=== PATIENT | female | born 1955 | race Caucasian/White ===

== ENCOUNTER 2016-05-10 13:14 | Emergency (ER) | payer OTHER ==
[~2016-05-10] VITALS: Ht 170.2 cm; Wt 95.3 kg
[~2016-05-10 13:14] MED LIST: AMBIEN 10MG10 MG PO; AMOXICILLIN500 MG PO; ANAPROX DS1 TAB PO; ARIMIDEX PO; AUGMENTIN 500-1 EACH PO; AVONEX 3030 MCG/0.5; BACTRIM DS 8001 TAB PO; BENZTROPINE1 MG PO; CELEBREX200 MG PO; COZAAR 50MG TAB50 MG PO; D3 VITAMIN400 IU/ML; FULL CIRCLE BIOT5 MG; GLUCOSAMINE500 MG; INDOMETHACIN25 MG PO; KEFLEX500 M1 PO; LEVOTHYROXINE88 MCG PO; LIPITOR10 MG PO; LITHIUM CARBON150 MG PO; LOSARTAN POTASS50 MG PO; LOVAZA1 GM PO; LUTEIN1 BEA; MAGNESIUM ELEME30 MG; MIRALAX17 GM PO; MYRBETRIQ25 MG PO; NASONEX0.05 MG/Ac; NATURE'S BLEND50 MCG; PREDNISONE20 M1 PO; PROTONIX 40MG T40 MG PO; RISPERIDONE1 MG PO; ROBAXIN 500MG500 MG PO; SEROQUEL400 MG PO; SEROQUEL50 MG PO; TENORMIN25 MG PO; TIZANIDINE2 MG PO; TRAMADOL HCL50 M1 PO; TRAMADOL50 MG PO; TRAZODONE50 MG PO; VITAMIN A NA10000 IU; VITAMIN C500 M1; VITAMIN D50000 I1 PO; VITAMIN E100 IU; [UNRECOGNIZED DRUG - OTHER] PO
[2016-05-10 13:28] VITALS: BP 146/89
[2016-05-10] MEDS ORDERED: MOBIC15 M1 PO (14:17)
--- NOTE | 2016-05-10 14:17 | ED UPPER/LOWER EXTREMITY COMPL ---
History of Present Illness General Chief Complaint: Upper Extremity Problem Stated Complaint: R ELBOW PAIN X 1 WEEK Source: patient Exam Limitations: no limitations Vital Signs & Intake/Output Vital Signs & Intake/Output Vital Signs Date Time Temp Pulse Resp B/P Pulse O2 O2 Flow FiO2 Ox Delivery Rate 05/10 1328 98.0 72 20 146/89 94 Room Air Allergies Coded Allergies: NO KNOWN ALLERGIES (05/10/16) Reconcile Medications Anastrozole (Arimidex 1MG) 1 MG TABLET 1 TAB PO DAILY UNKNOWN (Reported) Ascorbic Acid (Vitamin C) (Unknown Strength) CTB (Unknown Dose) SUPPLEMENT ( Reported) Atenolol (Tenormin) 25 MG TABLET 1 TAB PO DAILY BP (Reported) Atorvastatin Calcium (Lipitor) 10 MG TAB 1 TAB PO QPM CHOLOSTEROL (Reported) Benztropine Mesylate (Benztropine) 1 MG TAB 1 TAB PO UNKNOWN (Reported) Biotin (Unknown Strength) CAPSULE (Unknown Dose) SUPPLEMENT (Reported) Cephalexin (Keflex) 500 MG CAPSULE 1 CAP PO TID PARONYCHIA CHOLECALCIFEROL (VITAMIN D3) (Vitamin D) (Unknown Strength) DROPS (Unknown Dose) SUPPLEMENT (Reported) ERGOCALCIFEROL (VITAMIN D2) (Vitamin D2) 50,000 UNIT CAPSULE 1 CAP PO Q30D UNKNOWN (Reported) Glucosamine Sulfate (Glucosamine) (Unknown Strength) CAP (Unknown Dose) SUPPLEMENT (Reported) Interferon Beta-1a (Avonex) 30 MCG/0.5 ML SYRINGEKIT 30 MG QW UNKNOWN ( Reported) Levothyroxine Sodium 88 MCG TABLET 1 TAB PO DAILY AC THYROID (Reported) Losartan Potassium 50 MG TAB 1 TAB PO DAILY HEART (Reported) Lutein (Unknown Strength) BEADS (Unknown Dose) SUPPLEMENT (Reported) Meloxicam (Mobic) 15 MG TABLET 1 TAB PO DAILY INFLAMMATION Mirabegron (Myrbetriq) 25 MG TAB.ER.24H 1 TAB PO DAILY UNKNOWN (Reported) Mometasone Furoate (Nasonex) 0.05 MG/Actuation SPR UNKNOWN (Reported) Zdbxb-1-Ousu Ethyl Esters (Lovaza) 1 GRAM CAPSULE 2 CAP PO BID UNKNOWN ( Reported) Polyethylene Glycol 3350 (Miralax) 17 GRAM/DOSE POWDER 17 GM PO DAILY UNKNOWN (Reported) mix with water, juice, soda, coffee or tea Prednisone 20 MG TABLET 1 TAB PO BID DYSPNEA Quetiapine Fumarate (Seroquel) 400 MG TAB 1 TAB PO QPM MENTAL HEALTH ( Reported) Risperidone 1 MG TABLET 1 MG PO BID BIPOLAR (Reported) Selenium (Unknown Strength) TABLET (Unknown Dose) SUPPLEMENT (Reported) TIZANIDINE HCL (Tizanidine) 2 MG TABLET 2 MG PO TID LEG CRAMPS (Reported) Tramadol HCl 50 MG TABLET 1 TAB PO TID PRN PAIN Vitamin A (Vitamin A Natural) (Unknown Strength) SGL (Unknown Dose) DAILY SUPPLEMENT (Reported) Triage Note: TRIAGE: PT TO ER C/C R ELBOW AREA PAIN X 1 WK 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 HAS NOT TRIED ANY OTC PAIN MEDICATIONS. PREFERS TO WAIT FOR EVAL. Triage Nurses Notes Reviewed? yes HPI: 60-year-old female who was lifting a box approximately one week ago, it was a heavy box, she felt a sudden onset of severe pain to the right radial forearm region. She has had pain in this area since. It is slowly getting better. She is not taking any medication or having any treatment for this. She is right- hand dominant. There is no swelling. She has no limited range of motion. She denies any elbow pain. (VAUGHN VALLES) Past History Travel History Traveled to [place] past 21 day No Medical History Any Pertinent Medical History? 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 No (VAUGHN VALLES) Review of Systems Review of Systems Constitutional: Reports: see HPI. EENTM: Reports: no symptoms. Respiratory: Reports: no symptoms. Cardiovascular: Reports: no symptoms. Gastrointestinal/Abdominal: Reports: no symptoms. Genitourinary: Reports: no symptoms. Musculoskeletal: Reports: see HPI. Skin: Reports: no symptoms. Neurological/Psychological: Reports: no symptoms. Hematologic/Endocrine: Reports: no symptoms. Immunological: Reports: no symptoms. All Other Systems: Reviewed and Negative (VAUGHN VALLES) Physical Exam Physical Exam General Appearance: well developed/nourished Comments: Well-developed well-nourished no apparent distress. HEENT: Atraumatic, extraocular motion intact Neck: Supple, no lymphadenopathy Back: Nontender Respiratory: No respiratory distress Extremities: No edema, full range of motion Neuro: Alert and oriented x3 Psych: Mood affect normal, normal memory normal judgment. Skin: Warm and dry, no rash on exposed skin Right upper extremity, tenderness to the brachioradialis region proximally. There is increased pain with resisted flexion of the brachioradialis muscle. There is no tenderness of the elbow, elbow has full range of motion, wrist without tenderness, full range of motion. There is no bony tenderness. Neurovascular intact right upper extremity (VAUGHN VALLES) Progress Differential Diagnosis: arterial insufficiency, cellulitis, CHF, compartment syndrome, contusion, dislocation, DVT, fracture, gout, septic arthritis, sprain, tendon injury Plan of Care: Patient has a brachioradialis muscle strain, she has no bony tenderness, there is no swelling or is no sign of tendon rupture or muscle tear. She has no functional deficit. This is self-limiting and she requires NSAIDs rest ice, Mathtew wrap was applied to the right upper extremity by myself. She understands and agrees with plan to follow up with her primary care doctor if no better in 1-2 weeks. (VAUGHN VALLES) Departure Departure Disposition: HOME OR SELF CARE Condition: Stable Clinical Impression Primary Impression: Brachioradialis muscle tenderness Referrals: JANY MARTINEZ (PCP/Family) Additional Instructions: Rest, ice, compression (matthew wrap), elevation. Motrin and Tylenol as needed for pain. Gradual return to activity as tolerated. Follow-up with your doctor in one to 2 weeks if no better. Departure Forms: Customer Survey General Discharge Information Prescriptions: Current Visit Scripts Meloxicam (Mobic) 1 TAB PO DAILY #15 TAB (VAUGHN VALLES) PA/WORKPLACE RELATIONS ADVISER Co-Sign Statement Statement: ED Attending supervision documentation- [X] I saw and evaluated the patient. I have also reviewed all the pertinent lab results and diagnostic results. I agree with the findings and the plan of care as documented in the PA's/WORKPLACE RELATIONS ADVISER's documentation. [X]X I have reviewed the ED Record and agree with the PA's/WORKPLACE RELATIONS ADVISER's documentation. [] Additions or exceptions (if any) to the PAs/WORKPLACE RELATIONS ADVISER's note and plan are summarized below: [] (BELEN GOLDSMITH,DON Hyde)
== END 2016-05-10 14:17 ==
LOC: ERH 13:14
DX: M79.631 Pain in right forearm (principal)

== ENCOUNTER 2017-10-24 08:33 | Emergency (ER) | payer OTHER ==
[~2017-10-24] VITALS: Ht 170.2 cm; Wt 95.3 kg
[~2017-10-24 08:33] MED LIST changes: +AZITHROMYCIN250 M1 PO; +IBUPROFEN800 M1 PO; +LASIX20 M1 PO; +MOBIC15 M1 PO; +ROBAXIN-750750 M1 PO; +VENTOLIN HFA18 GM INH
[2017-10-24 08:38] VITALS: BP 144/83
[2017-10-24] MEDS ORDERED: CIPRODEX OTIC7.5 ML OT (09:06)
--- NOTE | 2017-10-24 09:06 | ED EAR COMPLAINT ---
History of Present Illness General Chief Complaint: Ear Complaints Stated Complaint: LEFT EAR PAIN X3DAYS Source: patient Exam Limitations: no limitations Vital Signs & Intake/Output Vital Signs & Intake/Output Vital Signs Date Time Temp Pulse Resp B/P B/P Pulse O2 O2 Flow FiO2 Mean Ox Delivery Rate 10/24 0852 Room Air 10/24 0838 96.2 76 20 144/83 96 Room Air Allergies Coded Allergies: NO KNOWN ALLERGIES (05/10/16) Reconcile Medications Albuterol Sulfate (Ventolin Hfa) 90 MCG HFA.AER.AD 2 PUF INH Q4-6 PRN PRN BRONCHITIS Anastrozole (Arimidex 1MG) 1 MG TABLET 1 TAB PO DAILY UNKNOWN (Reported) Ascorbic Acid (Vitamin C) (Unknown Strength) CTB (Unknown Dose) SUPPLEMENT ( Reported) Atenolol (Tenormin) 25 MG TABLET 1 TAB PO DAILY BP (Reported) Atorvastatin Calcium (Lipitor) 10 MG TAB 1 TAB PO QPM CHOLOSTEROL (Reported) Azithromycin 250 MG TABLET 1 DP PO AD BRONCHITIS 2 the first day followed by 1 for days 2-5 Benztropine Mesylate (Benztropine) 1 MG TAB 1 TAB PO UNKNOWN (Reported) Biotin (Unknown Strength) CAPSULE (Unknown Dose) SUPPLEMENT (Reported) Cephalexin (Keflex) 500 MG CAPSULE 1 CAP PO TID PARONYCHIA CHOLECALCIFEROL (VITAMIN D3) (Vitamin D) (Unknown Strength) DROPS (Unknown Dose) SUPPLEMENT (Reported) Ciprofloxacin HCl/Dexameth (Ciprodex Otic Suspension) 0.3 %-0.1 % DROPS.SUSP 4 GTT OT BID ear infection ERGOCALCIFEROL (VITAMIN D2) (Vitamin D2) 50,000 UNIT CAPSULE 1 CAP PO Q30D UNKNOWN (Reported) Furosemide (Lasix) 20 MG TABLET 1 TAB PO DAILY EDEMA Glucosamine Sulfate (Glucosamine) (Unknown Strength) CAP (Unknown Dose) SUPPLEMENT (Reported) Ibuprofen 800 MG TABLET 1 TAB PO TID PRN PAIN Interferon Beta-1a (Avonex) 30 MCG/0.5 ML SYRINGEKIT 30 MG QW UNKNOWN ( Reported) Levothyroxine Sodium 88 MCG TABLET 1 TAB PO DAILY AC THYROID (Reported) Losartan Potassium 50 MG TAB 1 TAB PO DAILY HEART (Reported) Lutein (Unknown Strength) BEADS (Unknown Dose) SUPPLEMENT (Reported) Meloxicam (Mobic) 15 MG TABLET 1 TAB PO DAILY INFLAMMATION Methocarbamol (Robaxin-750) 750 MG TABLET 1 TAB PO TID PRN PAIN Mirabegron (Myrbetriq) 25 MG TAB.ER.24H 1 TAB PO DAILY UNKNOWN (Reported) Mometasone Furoate (Nasonex) 0.05 MG/Actuation SPR UNKNOWN (Reported) Gdmtc-2-Eelo Ethyl Esters (Lovaza) 1 GRAM CAPSULE 2 CAP PO BID UNKNOWN ( Reported) Polyethylene Glycol 3350 (Miralax) 17 GRAM/DOSE POWDER 17 GM PO DAILY UNKNOWN (Reported) mix with water, juice, soda, coffee or tea Prednisone 20 MG TABLET 1 TAB PO BID BRONCHITIS Prednisone 20 MG TABLET 1 TAB PO BID DYSPNEA Quetiapine Fumarate (Seroquel) 400 MG TAB 1 TAB PO QPM MENTAL HEALTH ( Reported) Risperidone 1 MG TABLET 1 MG PO BID BIPOLAR (Reported) Selenium (Unknown Strength) TABLET (Unknown Dose) SUPPLEMENT (Reported) TIZANIDINE HCL (Tizanidine) 2 MG TABLET 2 MG PO TID LEG CRAMPS (Reported) Tramadol HCl 50 MG TABLET 1 TAB PO TID PRN PAIN Vitamin A (Vitamin A Natural) (Unknown Strength) SGL (Unknown Dose) DAILY SUPPLEMENT (Reported) Triage Note: PT TO ED C/O LEFT EAR PAIN X 3 DAYS. HPI: She has no significant past med hx. (Robinson GOLDSMITH,[facility]) General Source: patient, family, old records Exam Limitations: no limitations Triage Nurses Notes Reviewed? yes HPI: Patient presents complaining of pain to her left ear for the past 3 days. The pain increases when she pulls on her ear. There is no hearing change. Patient states that she's had similar symptoms in the past when she's had ear infections. The pain is aching in nature. She rates the pain a 4-10. Patient denies any dizziness. There are no fevers or chills. (Sammie GOLDSMITH,Santy Hyde) Past History Travel History Traveled to [place] past 21 day No Medical History Any Pertinent Medical History? 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 see below for history Family History Hx Contributory? No (Santy Cochran MD) Review of Systems Review of Systems Constitutional: Reports: no symptoms. EENTM: Reports: see HPI, ear pain. Respiratory: Reports: no symptoms. Cardiovascular: Reports: no symptoms. GI: Reports: no symptoms. Genitourinary: Reports: no symptoms. Musculoskeletal: Reports: no symptoms. Skin: Reports: no symptoms. Neurological/Psychological: Reports: no symptoms. Hematologic/Endocrine: Reports: no symptoms. Immunologic/Allergic: Reports: no symptoms. All Other Systems: Reviewed and Negative (Yasmeen Bowers MD) Review of Systems Constitutional: Reports: no symptoms. EENTM: Reports: see HPI, ear pain. Respiratory: Reports: no symptoms. Cardiovascular: Reports: no symptoms. Neurological/Psychological: Reports: no symptoms. Immunologic/Allergic: Reports: no symptoms. (Santy Cochran MD) Physical Exam Physical Exam General Appearance: well developed/nourished, alert, awake, anxious Head: atraumatic, normal appearance Eyes: Bilateral: normal appearance, PERRL, EOMI. Ears: Left: erythema. Bilateral: canal normal, Tympanic normal. Nose: normal inspection Mouth/Throat: normal mouth inspection, pharynx normal Neck: normal inspection, supple Cardiovascular/Respiratory: normal breath sounds, normal peripheral pulses, regular rate/rhythm Gastrointestinal: non tender, non distended Neurologic/Psych: no motor/sensory deficits, awake, alert, oriented x 3, normal gait, normal mood/affect (Yasmeen Bowers MD) Physical Exam General Appearance: well developed/nourished, alert, awake, anxious, mild distress Head: atraumatic Ears: Left: erythema. Right: canal normal. Bilateral: Tympanic normal. Mouth/Throat: normal mouth inspection, pharynx normal Cardiovascular/Respiratory: normal breath sounds, normal peripheral pulses, regular rate/rhythm Neurologic/Psych: no motor/sensory deficits, awake, alert, oriented x 3, normal gait, normal mood/affect (Santy Cochran MD) Progress Differential Diagnoses I considered the following diagnoses in my evaluation of the patient: (Yasmeen Bowers MD) Differential Diagnoses I considered the following diagnoses in my evaluation of the patient: [Otitis media, otitis externa] Plan of Care: Antibiotic eardrops Initial ED EKG: none (Sammie GOLDSMITH,Santy Hyde) Departure Departure Disposition: HOME OR SELF CARE Condition: Stable Referrals: Shari Oconnor APRN (PCP/Family) Additional Instructions: -Please visit your nearest emergency department if you have worsening ear pain, ear discharge, fever, chills -Please visit your primary care physician and let them know about your recent emergency department visit Departure Forms: Customer Survey General Discharge Information Prescriptions: Current Visit Scripts Ciprofloxacin HCl/Dexameth (Ciprodex Otic Suspension) 4 GTT OT BID #7.5 ML (Yasmeen Bowers MD) Departure Clinical Impression Primary Impression: Otitis externa Resident Co-Sign Statement Statement: ED Attending supervision documentation- [X] I saw and evaluated the patient. I have also reviewed all the pertinent lab results and diagnostic results. I agree with the findings and the plan of care as documented in the Resident's documentation. [X] I have reviewed the ED Record and agree with the Resident's documentation. [] Additions or exceptions (if any) to the Resident's note and plan are summarized below: [] (Sammie GOLDSMITH,Santy Hyde) ED Attending Observation Initial Observation Note: I have seen and personally examined JALEN DAS on 10/24/17 at 1601. I agree with the current emergency department documentation. The disposition (admission or discharge) is uncertain at this time, she needs a period of observation for the following reason(s): [no obs needed] The ED Nurse caring for this patient has been personally informed as to what the patient is being observed for. (Yasmeen Bowers MD)
== END 2017-10-24 09:11 ==
LOC: ERH 08:33
DX: H60.92 Unspecified otitis externa, left ear (principal)

== ENCOUNTER 2017-10-27 14:48 | Emergency (ER) | payer OTHER ==
[~2017-10-27] VITALS: Ht 170.2 cm; Wt 95.3 kg
[~2017-10-27 14:48] MED LIST changes: +CIPRODEX OTIC7.5 ML OT
[2017-10-27 15:12] LABS: ABSOLUTE BASOPHIL COUNT 0 /CUMM (0.0-0.2); ABSOLUTE EOSINOPHIL COUNT 0.1 /CUMM (0.0-0.7); ABSOLUTE GRANULOCYTE CT 1.8 /CUMM (1.4-6.5); ABSOLUTE LYMPH COUNT 1.2 /CUMM (1.2-3.4); ABSOLUTE MONOCYTE COUNT 0.3 /CUMM (0.10-0.60); BASOPHIL % 0.9 % (0.0-2.0); EOSINOPHIL % 2.2 % (0-5); GRANULOCYTE % 53.2 % (42.2-75.2); HEMATOCRIT 33.2 % (37-47); MEAN CORPUSCULAR HGB 28.8 PG (27.0-31.0); MEAN CORPUSCULAR HGB CONC 33.3 G/DL (33.0-37.0); MEAN CORPUSCULAR VOLUME 86.5 FL (81.0-99.0); MEAN PLATELET VOLUME 9.2 FL (7.4-10.4); PLATELET COUNT 122 /CUMM (130-400); RBC DISTRIBUTION WIDTH 15.1 % (11.5-14.5); RED BLOOD CELL CT 3.84 /CUMM (4.20-5.40); WHITE BLOOD CELL COUNT 3.3 /CUMM (4.8-10.8)
--- NOTE | 2017-10-27 15:48 | RADIOLOGY REPORT ---
EXAMINATION: CHEST 2 VIEWS CLINICAL INFORMATION: Chest pain. COMPARISON: 01/03/2017. TECHNIQUE: PA and lateral views of the chest were obtained. FINDINGS: The cardiac silhouette is not enlarged. The mediastinal and hilar contours are unremarkable. There are neither pleural effusions nor pneumothoraces. There are no consolidations. The osseous structures are stable. IMPRESSION: No evidence for acute disease.
--- NOTE | 2017-10-27 16:08 | ED GENERAL ADULT ---
History of Present Illness General Chief Complaint: Chest Pain Stated Complaint: CP Source: patient Exam Limitations: no limitations Vital Signs & Intake/Output Vital Signs & Intake/Output Vital Signs Date Time Temp Pulse Resp B/P B/P Pulse O2 O2 Flow FiO2 Mean Ox Delivery Rate 10/27 1847 65 17 175/95 98 Room Air 10/27 1637 95 Room Air 10/27 1502 97.8 74 20 122/80 96 Room Air Allergies Coded Allergies: NO KNOWN ALLERGIES (05/10/16) Reconcile Medications Albuterol Sulfate (Ventolin Hfa) 90 MCG HFA.AER.AD 2 PUF INH Q4-6 PRN PRN BRONCHITIS Anastrozole (Arimidex 1MG) 1 MG TABLET 1 TAB PO DAILY UNKNOWN (Reported) Ascorbic Acid (Vitamin C) (Unknown Strength) CTB (Unknown Dose) SUPPLEMENT ( Reported) Atenolol (Tenormin) 25 MG TABLET 1 TAB PO DAILY BP (Reported) Atorvastatin Calcium (Lipitor) 10 MG TAB 1 TAB PO QPM CHOLOSTEROL (Reported) Azithromycin 250 MG TABLET 1 DP PO AD BRONCHITIS 2 the first day followed by 1 for days 2-5 Benztropine Mesylate (Benztropine) 1 MG TAB 1 TAB PO UNKNOWN (Reported) Biotin (Unknown Strength) CAPSULE (Unknown Dose) SUPPLEMENT (Reported) Cephalexin (Keflex) 500 MG CAPSULE 1 CAP PO TID PARONYCHIA CHOLECALCIFEROL (VITAMIN D3) (Vitamin D) (Unknown Strength) DROPS (Unknown Dose) SUPPLEMENT (Reported) Ciprofloxacin HCl/Dexameth (Ciprodex Otic Suspension) 0.3 %-0.1 % DROPS.SUSP 4 GTT OT BID ear infection ERGOCALCIFEROL (VITAMIN D2) (Vitamin D2) 50,000 UNIT CAPSULE 1 CAP PO Q30D UNKNOWN (Reported) Furosemide (Lasix) 20 MG TABLET 1 TAB PO DAILY EDEMA Glucosamine Sulfate (Glucosamine) (Unknown Strength) CAP (Unknown Dose) SUPPLEMENT (Reported) Ibuprofen 800 MG TABLET 1 TAB PO TID PRN PAIN Interferon Beta-1a (Avonex) 30 MCG/0.5 ML SYRINGEKIT 30 MG QW UNKNOWN ( Reported) Levothyroxine Sodium 88 MCG TABLET 1 TAB PO DAILY AC THYROID (Reported) Losartan Potassium 50 MG TAB 1 TAB PO DAILY HEART (Reported) Lutein (Unknown Strength) BEADS (Unknown Dose) SUPPLEMENT (Reported) Meloxicam (Mobic) 15 MG TABLET 1 TAB PO DAILY INFLAMMATION Methocarbamol (Robaxin-750) 750 MG TABLET 1 TAB PO TID PRN PAIN Mirabegron (Myrbetriq) 25 MG TAB.ER.24H 1 TAB PO DAILY UNKNOWN (Reported) Mometasone Furoate (Nasonex) 0.05 MG/Actuation SPR UNKNOWN (Reported) [id number] Ethyl Esters (Lovaza) 1 GRAM CAPSULE 2 CAP PO BID UNKNOWN ( Reported) Polyethylene Glycol 3350 (Miralax) 17 GRAM/DOSE POWDER 17 GM PO DAILY UNKNOWN (Reported) mix with water, juice, soda, coffee or tea Prednisone 20 MG TABLET 1 TAB PO BID BRONCHITIS Prednisone 20 MG TABLET 1 TAB PO BID DYSPNEA Quetiapine Fumarate (Seroquel) 400 MG TAB 1 TAB PO QPM MENTAL HEALTH ( Reported) Risperidone 1 MG TABLET 1 MG PO BID BIPOLAR (Reported) Selenium (Unknown Strength) TABLET (Unknown Dose) SUPPLEMENT (Reported) TIZANIDINE HCL (Tizanidine) 2 MG TABLET 2 MG PO TID LEG CRAMPS (Reported) Tramadol HCl 50 MG TABLET 1 TAB PO TID PRN PAIN Vitamin A (Vitamin A Natural) (Unknown Strength) SGL (Unknown Dose) DAILY SUPPLEMENT (Reported) Triage Note: PT TO ED C/O CHEST PAIN SINCE THIS AM. STATES CONSTANT SHARP 6/10 PAIN. PAIN IS NON RADIATING. EKG DONE, VSS. Triage Nurses Notes Reviewed? yes HPI: Pt is a 62 y/o F PMHx breast CA s/p lumpectomy 2012, MS, bipolar d/o, chronic back pain complaining of chest pain x several days. Pt describes a constant, sharp pain located at the left breast and shoulder region. Pain is exacerbated after lying down while supporting herself with her left shoulder while reading magazines. Pt has not attempted any alleviating measures. Pt denies any SOB, N/V /D, abdominal pain, recent travel, smoking, estrogen use. (Doyle GOLDSMITH,Isauro) Past History Travel History Traveled to [place] past 21 day No Medical History Any Pertinent Medical History? 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 Yes (Isauro Kwon MD) Review of Systems Review of Systems Constitutional: Denies: see HPI. Respiratory: Denies: see HPI. Cardiovascular: Reports: see HPI. GI: Denies: see HPI. Genitourinary: Denies: see HPI. Musculoskeletal: Reports: see HPI. (Isauro Kwon MD) Physical Exam Physical Exam General Appearance: well developed/nourished, no apparent distress, alert Head: atraumatic, normal appearance Eyes: Bilateral: normal appearance. Neck: normal inspection, supple, full range of motion Respiratory: normal breath sounds, lungs clear, Pain is reproducible with palpation. Cardiovascular: regular rate/rhythm, normal peripheral pulses, NMRG Gastrointestinal: normal bowel sounds, soft, non-tender Core Measures ACS in differential dx? Yes CVA/TIA Diagnosis: No Sepsis Present: No Sepsis Focused Exam Completed? No (Isauro Kwon MD) Progress Differential Diagnoses I considered the following diagnoses in my evaluation of the patient: Clinically suspect musculoskeletal pain in this patient based on exam, history, and presentation. Mild concern also for atypical ACS in this 62-year-old female with some risk factors. Pulmonary embolism seems extremely unlikely and patient without tachycardia, shortness of breath, tachypnea, suggestive history or exam features or known risk factors. Pneumonia is remote possibility as well. Although there are no skin changes, could be very early zoster. Plan of Care: Orders Procedure Date/time Status TROPONIN LEVEL 10/27 1719 Complete TROPONIN LEVEL 10/27 1454 Complete COMPREHENSIVE METABOLIC PANEL 10/27 1454 Complete CBC WITHOUT DIFFERENTIAL 10/27 1454 Complete EKG 10/27 1449 Active Laboratory Tests 10/27/17 1741: Troponin I < 0.01 10/27/17 1504: Anion Gap 10, Estimated GFR 45 L, BUN/Creatinine Ratio 26.7 H, Glucose 228 H, Calcium 9.8, Total Bilirubin 0.1 L, AST 42 H, ALT 56 H, Alkaline Phosphatase 97, Troponin I < 0.01, Total Protein 6.6, Albumin 4.0, Globulin 2.6, Albumin/ Globulin Ratio 1.5, CBC w Diff NO MAN DIFF REQ, RBC 3.84 L, MCV 86.5, MCH 28.8, MCHC 33.3, RDW 15.1 H, MPV 9.2, Gran % 53.2, Lymphocytes % 34.8, Monocytes % 8.9, Eosinophils % 2.2, Basophils % 0.9, Absolute Granulocytes 1.8, Absolute Lymphocytes 1.2, Absolute Monocytes 0.3, Absolute Eosinophils 0.1, Absolute Basophils 0 Plan for troponin 2, EKG, chest x-ray, reassessment. Likely discharge home with ibuprofen, return precautions. Troponin negative 2, EKG nonischemic, patient well-appearing reassessment. Discharged home with return precautions Initial ED EKG: RBBB, no ST T wave changes (Isauro Kwon MD) Departure Departure Time of Disposition: 1856 Disposition: HOME OR SELF CARE Condition: Stable Clinical Impression Primary Impression: Chest wall pain Referrals: Shari Oconnor APRN (PCP/Family) Additional Instructions: Thank you for coming to [facility] today. As we discussed, I recommend he follow-up with your doctor as previously planned. Please return to the emergency department if he develop any worsening pain or other concerning symptoms such as fever, shortness of breath, leg swelling, headache, dizziness, or other concerning symptoms. I recommend that you take 500 mg of acetaminophen every 6-8 hours as needed for pain. Departure Forms: Customer Survey General Discharge Information (Isauro Kwon MD) Resident Co-Sign Statement Statement: ED Attending supervision documentation- [] I saw and evaluated the patient. I have also reviewed all the pertinent lab results and diagnostic results. I agree with the findings and the plan of care as documented in the Resident's documentation. [X] I have reviewed the ED Record and agree with the Resident's documentation. [] Additions or exceptions (if any) to the Resident's note and plan are summarized below: [] (Sammie GOLDSMITH,Santy Hyde) Critical Care Note Critical Care Note Critical Care Time: non-applicable (Isauro Kwon MD) ED Attending Observation Initial Observation Note: I have seen and personally examined JALEN DAS on 10/27/17 at 1858. I agree with the current emergency department documentation. The disposition (admission or discharge) is uncertain at this time, she needs a period of observation for the following reason(s): The ED Nurse caring for this patient has been personally informed as to what the patient is being observed for. (Doyle GOLDSMITH,Isauro)
[2017-10-27 18:47] VITALS: BP 175/95
== END 2017-10-27 19:30 ==
LOC: ERH 14:48
PROVIDERS: Physician Assistant Medical
DX: R07.89 Other chest pain (principal)
CPT/HCPCS: 71046; 93005; 93010